=== PATIENT | female | born 1980 | race African-American/Black ===

== ENCOUNTER 2018-05-19 00:27 | Emergency (ER) | payer BC ==
[~2018-05-19] VITALS: Ht 172.7 cm; Wt 80.3 kg
[~2018-05-19 00:27] MED LIST: ATIVAN0.5 MG PO; PHENERGAN 25 MG25 M1 PO; PROMS25 WY RECTAL
[2018-05-19] MEDS ORDERED: MOBIC15 MG PO (00:56)
[2018-05-19] MEDS ORDERED: TRAMADOL 50 MG50 MG PO (00:56)
[2018-05-19 01:19] LABS: BASOPHILS 1.3 % (0.0-2.0); EOSINOPHILS 0.4 % (0.0-3.0); HEMATOCRIT 41.2 % (37.0-47.0); HEMOGLOBIN 14.8 gm/dL (12.0-15.0); LYMPHOCYTES 23.7 % (24.0-44.0); MCH 32.3 pg (26.0-34.0); MCHC 35.8 g/dL (28.0-37.0); MCV 90.3 fL (80.0-100.0); MONOCYTES 9.5 % (1.0-8.0); PLATELET COUNT 211 thou/uL (150-400); POLYS 65.1 % (36.0-66.0); RBC 4.57 mil/uL (4.20-5.00); RDW 12.2 % (10.5-14.5); WBC 4.7 thou/uL (4.0-11.0)
[2018-05-19 01:20] LABS: URINE BLOOD TRACE (Negative); URINE CLARITY CLEAR; URINE COLOR YELLOW; URINE GLUCOSE-RANDOM* NEGATIVE (Negative); URINE KETONES 2+ (Negative); URINE LEUKOCYTES-REFLEX NEGATIVE (Negative); URINE NITRITE-REFLEX NEGATIVE (Negative); URINE PROTEIN (DIPSTICK) TRACE (Negative); URINE SPECIFIC GRAVITY 1.025 (1.005-1.035); URINE UROBILINOGEN 0.2 E.U./dl (0.2-1.0)
[2018-05-19 01:21] LABS: ICTOTEST (BILI CONFIRMATORY) Negative (Negative); URINE BILIRUBIN NEGATIVE (Negative)
[2018-05-19 01:26] LABS: CALCIUM 8.9 mg/dL (8.5-10.1); CREATININE 0.9 mg/dL (0.6-1.0); POTASSIUM 3.1 mmol/L (3.5-5.1)
[2018-05-19 01:32] LABS: TOTAL BILIRUBIN 0.6 mg/dL (<0.1-1.0); TOTAL PROTEIN 7.9 g/dL (6.4-8.2)
[2018-05-19] MEDS ORDERED: COMPAZINE10 MG PO (03:23)
[2018-05-19] MEDS ORDERED: PROTONIX40 MG PO (03:23)
[2018-05-19] MEDS ORDERED: NORCO 5-325 TA1 EACH PO (03:28)
[2018-05-19 03:45] VITALS: BP 118/73
== END 2018-05-19 03:47 | disposition home or self-care (01) ==
LOC: ER 00:27
PROVIDERS: Emergency Medicine
DX: K21.9 Gastro-esophageal reflux disease without esophagitis (principal); A08.4 Viral intestinal infection, unspecified

== ENCOUNTER 2019-07-03 18:11 | Emergency (ER) | payer OTHER ==
[~2019-07-03] VITALS: Ht 175.3 cm; Wt 90.7 kg
[~2019-07-03 18:11] MED LIST changes: +COMPAZINE10 MG PO; +MOBIC15 MG PO; +NORCO 5-325 TA1 EACH PO; +PROTONIX40 MG PO; +TRAMADOL 50 MG50 MG PO
[2019-07-03 18:33] LABS: URINE BLOOD 2+ (Negative); URINE CLARITY CLEAR; URINE COLOR YELLOW; URINE GLUCOSE-RANDOM* NEGATIVE (Negative); URINE KETONES 3+ (Negative); URINE LEUKOCYTES NEGATIVE (Negative); URINE NITRITE NEGATIVE (Negative); URINE PROTEIN (DIPSTICK) TRACE (Negative); URINE SPECIFIC GRAVITY 1.025 (1.005-1.035); URINE UROBILINOGEN 0.2 E.U./dl (0.2-1.0)
[2019-07-03 18:42] LABS: ICTOTEST (BILI CONFIRMATORY) Negative (Negative); URINE BILIRUBIN NEGATIVE (Negative)
[2019-07-03 18:46] LABS: MUCUS 4-6 Moderate strn/LPF (None Seen); SQUAMOUS 4-10 Moderate /LPF (0-3); URINE RBC 3-10 Few /HPF (0-2); URINE WBC 0-5 Rare /HPF (0-5)
[2019-07-03 18:47] LABS: BACTERIA >30 Many /HPF (None Seen); CASTS None Seen /LPF (None Seen)
[2019-07-03 18:47] LABS: ABSOLUTE NEUTROPHILS 3.8 thou/uL (1.4-8.2); BASOPHILS 0.6 % (0.0-2.0); EOSINOPHILS 0.4 % (0.0-3.0); HEMATOCRIT 43.8 % (37.0-47.0); HEMOGLOBIN 15.2 gm/dL (12.0-15.0); LYMPHOCYTES 27.1 % (24.0-44.0); MCH 32.2 pg (26.0-34.0); MCHC 34.8 g/dL (28.0-37.0); MCV 92.6 fL (80.0-100.0); MONOCYTES 8.2 % (1.0-8.0); PLATELET COUNT 216 thou/uL (150-400); POLYS 63.7 % (36.0-66.0); RBC 4.73 mil/uL (4.20-5.00); WBC 5.9 thou/uL (4.0-11.0)
[2019-07-03 18:53] LABS: CRYSTALS None Seen /LPF (None Seen)
[2019-07-03 19:33] LABS: ALBUMIN 3.9 g/dL (3.4-5.0); CALCIUM 9.1 mg/dL (8.5-10.1); CREATININE 0.7 mg/dL (0.6-1.0); POTASSIUM 3.3 mmol/L (3.5-5.1); TOTAL BILIRUBIN 0.6 mg/dL (<0.1-1.0); TOTAL PROTEIN 7.8 g/dL (6.4-8.2)
[2019-07-03] MEDS ORDERED: BENTYL 20 MG TA20 M1 PO (22:06)
[2019-07-03] MEDS ORDERED: ZOFRAN ODT4 MG PO (22:06)
[2019-07-03] MEDS ORDERED: PHENERGAN 25 MG25 M1 PO (22:06)
[2019-07-03 22:33] VITALS: BP 146/87
== END 2019-07-03 22:42 | disposition home or self-care (01) ==
LOC: ER 18:11
PROVIDERS: Emergency Medicine
DX: K52.9 Noninfective gastroenteritis and colitis, unspecified (principal)

== ENCOUNTER → 2020-02-23 | Outpatient (CLI) | payer BC ==
[~2020-02-23] MED LIST changes: +BENTYL 20 MG TA20 M1 PO; +ZOFRAN ODT4 MG PO
== END ==
LOC: RAD 16:23
DX: R05 Cough (principal)